=== PATIENT | male | born 1980 | race African-American/Black ===

== ENCOUNTER 2018-01-26 03:19 | Emergency (ER) | payer OTHER ==
[~2018-01-26] VITALS: Ht 180.3 cm; Wt 108.9 kg
[2018-01-26 03:19] VITALS: BP 158/101
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
[2018-01-26] MEDS ORDERED: LIDOCAINE 1%-EPI 1:100,000 20 ML VIAL ONE (03:44)
== END 2018-01-26 04:06 ==
LOC: ER 03:23
DX: S30.851A Superficial foreign body of abdominal wall, initial encounter (principal); F10.10 Alcohol abuse, uncomplicated; Y90.9 Presence of alcohol in blood, level not specified; Z02.89 Encounter for other administrative examinations; W45.8XXA Other foreign body or object entering through skin, initial encounter; Y93.89 Activity, other specified; Y92.89 Other specified places as the place of occurrence of the external cause; Y99.8 Other external cause status
CPT/HCPCS: 10120; 99284; A4606; A6402 ×2; J3490; Z7610